=== PATIENT | female | born 1960 | race Asian ===

== ENCOUNTER 2022-01-18 00:48 | Emergency (ER) | payer OTHER, SELFPAY ==
--- NOTE | ~2022-01-18 | CT_ITS ---
EXAMINATION: CT brain wo con INDICATION: Head injury COMPARISON: None TECHNIQUE: Standard unenhanced head CT. The dose-length product (DLP) was 605.33 mGy-cm. The mA was a djusted according to patient size. Iterative reconstruction technique was employed. FINDINGS: There is a left posterior parietal scalp hematoma. There is no intracranial hemorrhage, acu te infarction, or abnormal mass lesion. The ventricles are normal. There is no abnormal mass effect o r midline shift. The blanco-white matter differentiation is normal. The basal cisterns are patent. The orbits are normal. The paranasal sinuses, mastoids and calvarium are normal. IMPRESSION: 1. No acute intracranial abnormality. Reviewed, dictated and finalized at location A. CASTER
--- NOTE | ~2022-01-18 | CT_ITS ---
EXAMINATION: CT cervical spine wo con DATE: 01/18/2022 03:19 INDICATION: Head injury TECHNIQUE: Computed tomography (CT) of the cervical spine was performed without intravenous contrast. The dose-length product (DLP) was 390.42 mGy-cm. Automated exposure control and iterative reconstruc tion technique were employed. COMPARISON: None FINDINGS: There is no fracture. There are 2 mm of retrolisthesis of C4 on C5. The vertebral body heig hts are maintained. The odontoid is intact. There is moderate loss of intervertebral disc space heigh t throughout the cervical spine. Mild facet and uncovertebral joint osteoarthritis is noted. The prev ertebral soft tissues are normal. IMPRESSION: 1. Moderate cervical spondylosis without acute findings. Reviewed, dictated and finalized at location A. PHONE CLEANER
[2022-01-18 00:44] VITALS: BP 163/97; PULSE 76; RESP 16; TEMP 36.8; O2SAT 98
--- NOTE | 2022-01-23 21:51 | ED.FALL ---
HPI - Fall General Chief Complaint: Fall Stated Complaint: GLF NECK PAIN Time Seen by Provider: 01/18/22 00:50 Source: patient Mode of arrival: ambulatory Limitations: no limitations History of Present Illness HPI Narrative: This is a 61 year old female that presents to the ER after a ground level fall with head injury. Reports she slipped and fell backwards. Also reports neck pain. Denies vision changes, vomiting, numbness or weakness. Related Data Allergies Allergy/AdvReac Type Severity Reaction Status Date / Time No Known Allergies Allergy Unverified 11/03/15 14:01 Review of Systems Review of Systems: CONSTITUTIONAL: Denies fever EYES: Denies visual changes GASTROINTESTINAL: Denies vomiting MUSCULOSKELETAL: Reports joint pain, and myalgia. NEUROLOGIC: Reports headache. Denies numbness, or weakness. All systems reviewed & are unremarkable except as noted in HPI and below PMFSH Past Medical History Medical History (Updated 01/23/22 @ 21:58 by Carlita Sow PA-C) History of hypertension Social History Social History (Updated 01/23/22 @ 21:56 by Carlita Sow PA-C) Substance use: never Exam Narrative: GENERAL: Well-appearing, well-nourished, and in no acute distress. HEAD: Normocephalic, atraumatic. EYES: PERRLA and EOMI. ENT: Nares clear, no rhinorrhea or epistaxis. Mucous membranes moist. Oropharynx without tonsillar hypertrophy exudate or other lesions. Bilateral TMs pearly blanco non-bulging NECK: Supple. No adenopathy or masses. Tender to palpation of midline cervical spine CHEST: Clear to auscultation. No respiratory distress. No wheezes rales or rhonchi HEART: Regular rate and rhythm. No murmur heard. Normal peripheral pulses. BACK: No midline thoracic or lumbar spine tenderness EXTREMITIES: Normal range of motion. No edema or obvious deformity. SKIN: Warm, dry, no rash. NEURO: No focal deficits. Alert and oriented x3. Cranial nerves II through XII grossly PSYCH: Normal mood and affect Course Vital Signs Vital signs: Vital Signs Temperature 98.2 F 01/18/22 00:44 Pulse Rate 76 01/18/22 00:44 Respiratory Rate 16 01/18/22 00:44 Blood Pressure 163/97 H 01/18/22 00:44 Pulse Oximetry 98 01/18/22 00:44 Temperature 98.2 F 01/18/22 00:44 Pulse Rate 76 01/18/22 00:44 Respiratory Rate 16 01/18/22 00:44 Blood Pressure 163/97 H 01/18/22 00:44 Pulse Oximetry 98 01/18/22 00:44 MDM - Fall MDM Narrative Medical decision making narrative: Patient presents to the emergency department after a ground-level fall with head injury. Also reporting neck pain. Patient is neurologically intact. CT scan of the brain and cervical spine without acute findings. Patient was updated on case findings. She was instructed on care of concussion. She is to follow-up with primary care doctor. She was given warnings to return to the ER Imaging Data Radiologist's impression: ITS Impressions Head CT 01/18/22 08:16 IMPRESSION: 1. No acute intracranial abnormality. Cervical Spine CT 01/18/22 08:25 IMPRESSION: 1. Moderate cervical spondylosis without acute findings. Critical Care Time Critical Care Time Critical Care Time: No Discharge Plan Discharge Clinical Impression: Head injury Patient Disposition: Home, Self-Care Condition: Stable Instructions: Head Injury (ED) Additional Instructions: Return to the emergency department if you experience vision changes, vomiting, sudden onset numbness or weakness, or any other symptoms that are concerning to you Rest. Remain well-hydrated. Tylenol or ibuprofen as needed for pain Follow up with your primary care doctor Follow-up/Referrals: Kat,Maliha Rizo MD [Primary Care Provider] - 3 Days
== END 2022-01-18 05:20 | disposition home or self-care (01) ==
PROVIDERS: Emergency Provider Emergency Medicine; PCP Family Medicine
DX: S09.90XA Unspecified injury of head, initial encounter (principal); I10 Essential (primary) hypertension; W00.0XXA Fall on same level due to ice and snow, initial encounter
CPT/HCPCS: 70450; 72125; 99284; A9270; L0140